=== PATIENT | female | born 1985 | race Caucasian/White ===

== ENCOUNTER → 2020-08-10 15:38 | Outpatient (CLI) | payer OTHER, SELFPAY ==
--- NOTE | ~2020-08-10 | US_ITS ---
US OB >= 14 weeks Fetus DATE: 08/10/2020 16:23 INDICATION: anatomy screen TECHNIQUE: Real-time imaging and Doppler analysis COMPARISON: None FINDINGS: Live peck intrauterine gestation, fetus in variable position during the examination. Anterior placenta, lower margin 5.9 cm above the internal os. Subjectively normal amount of amniotic fluid. cerebral ventricles are of normal size. The cerebellum and nuchal fold appear normal. Fet al nose and lips appear normal. Normal extremities are demonstrated. spine appears unrema rkable on transverse and longitudinal imaging. The diaphragm is intact. Four-chamber heart with Doppler heart rate of 150 bpm. Left and right ventricular outflow tract s appear normal. Fluid is demonstrated in the stomach and urinary bladder. kidneys appear normal, wi thout hydronephrosis. Normal insertion of three-vessel umbilical cord at abdominal wall. Biparietal diameter: 4.99 cm; 21 weeks 1 day estimated gestational age Head circumference: 19.09 cm; 21 weeks 2 days Abdominal circumference: 17.27 cm; 22 weeks 2 days Femur length: 3.47 cm; 21 weeks 0 days Composite age by Hadlock formula is 21 weeks 3 days +/- 1 week 4 day; KEELY is 12/18/2020 based upon cur rent biometrics. This compares to 12/22/2020 by LMP. Estimated weight: 436.1 +/- 65.4 g Estimated weight-GP: 83.2% Head circumference/abdominal circumference: 1.11, within normal range of 1.06-1.24 Femur length/abdominal circumference: 20.12, within normal range of 20.00-24.00 Femur length/head circumference: 18.20, within normal range of 16.97-20.26 IMPRESSION: Normal anatomy screen Composite age by Hadlock formula is 21 weeks 3 days +/- 1 week 4 day; KEELY is 12/18/2020 based upon cur rent biometrics. This compares to 12/22/2020 by LMP. Estimated weight: 436.1 +/- 65.4 g Reviewed, dictated and finalized at [facility]. Reviewed, dictated and finalized at [facility]. IMPRESSION: Normal anatomy screen Composite age by Hadlock formula is 21 weeks 3 days +/- 1 week 4 day; KEELY is based upon current biometrics. This compares to 12/22/2020 by LMP. Estimated weight: 436.1 +/- 65.4 g
== END ==
DX: Z34.80 Encounter for supervision of other normal pregnancy, unspecified trimester (principal); Z3A.21 21 weeks gestation of pregnancy
CPT/HCPCS: 76805